=== PATIENT | female | born 1990 | race Caucasian/White ===

== ENCOUNTER 2017-03-04 21:18 | Emergency (ER) | payer OTHER ==
--- NOTE | ~2017-03-04 | CR21 ---
[facility] A Service of [facility] RADIOLOGY TEXT RESULTS PATIENT: ROSALBA ROSA V LOCATION: SED : 91 UNIT #: [id number] AGE: [address]: Brett Ambrose MD SEX: F ORDER DR: [id number] [place] [id number] E MR#: [id number] Acc #: [id number] NAME: ROSALBA ROSA V. : 1990 SEX: F STUDY DATE/TIME: 03/04/2017 22:32 UNIT: SED ROOM: STUDY DESCRIPTION: CR Ankle Min 3 Views Rt Attending Physician: Brett Ambrose M.D. Ordering Physician: Brett Ambrose M.D. Primary Care Physician: Blaze Pappas M.D. MEDICAL IMAGING REPORT This report is preliminary unless electronic signature is present. EXAM Right ankle series HISTORY Pain, lateral ankle pain shooting up to knee, onset 2000 hours today. Surgery last year with hardware placed. FINDINGS AP, lateral and oblique radiographs of the right ankle are presented. No prior ankle imaging for comparison. Comparison with prior studies recommended, if available. There is no evidence of acute fracture. There are 2 obliquely oriented orthopedic fixation screws extending through the talus. There is faint visualization of what is either a old fracture plane or surgical osteotomy plane. This is seen along the anterior aspect of the talar dome on the lateral view. I do not believe that this is acute in time course. There is a 4 mm well-corticated calcification along the inferior aspect of the lateral malleolus favored to represent old chip or avulsion fracture, or accessory ossification center. Correlate with any acute injury to this region. There is no soft tissue defect, subcutaneous air or non-orthopedic radiodense foreign body. There is a small plantar calcaneal spur. Dictated by... Brett Peralta M.D. THIS IS AN ELECTRONICALLY VERIFIED REPORT Brett Peralta M.D. at 03/05/2017 10:59 PM VIELKA/valentin TD: 03/05/2017 02:26 JOB #: [id number] [facility] A Service of [facility] RADIOLOGY TEXT RESULTS PATIENT: ROSALBA ROSA V LOCATION: SED : 91 UNIT #: [id number] AGE: [address]: Brett Ambrose MD SEX: F ORDER DR: MEDICAL IMAGING REPORT Page 1 of 1
[~2017-03-04 21:18] MED LIST: AMOXICILLIN500 M1 PO; BACTRIM DS TABL1 TA1 PO; CEFTIN PO; CIPRO PO; CLEOCIN HCL300 M1 PO; COUMADIN5 MG PO; DECADRON PO; DICLOFENAC PO; DOXYCYCLINE HY100 M1 PO; DOXYCYCLINE150 MG PO; ELIMITE60 GM TOP; FLAGYL PO; FLAGYL250 M1 PO; IBUPROFEN PO; IRON; LOVENOX SUBQ; MACROBID100 MG PO; NAPROXEN PO; NEXPLANON68 MG SQ; NO MEDICATIONS; PHENERGAN DM1 ML PO; PHENERGAN25 M1 PO; PRENATAL MULITV1 TAB PO; PRENATAL MULTIV1 TA1 PO; PRENATAL VITAMI1 TA7 PO; PRENATAL1 TA1 PO; PYRIDIUM100 MG PO; STOOL SOFTNER; TYLENOL #3 PO; VIBRAMYCIN100 M1 PO; VOLTAREN50 MG PO
[2017-03-04] MEDS ORDERED: DIAZEPAM (21:30)
== END 2017-03-04 23:23 | disposition home or self-care (01) ==
LOC: SED 21:18
DX: S93.401A Sprain of unspecified ligament of right ankle, initial encounter (principal); F17.200 Nicotine dependence, unspecified, uncomplicated; W18.40XA Slipping, tripping and stumbling without falling, unspecified, initial encounter; Y92.009 Unspecified place in unspecified non-institutional (private) residence as the place of occurrence of the external cause
CPT/HCPCS: 29540; 73610; 99283

== ENCOUNTER 2017-04-17 23:45 | Emergency (ER) | payer OTHER ==
--- NOTE | ~2017-04-17 | EKG ---
PATIENT: ROSALBA ROSA UNIT #: [id number] Ventricular Rate: 93 BPM Atrial Rate: 93 BPM P-R Interval: 150 ms QRS Duration: 90 ms Q-T Interval: 374 ms QTC Calculation(Bezet): 465 ms P [place]: 25 degrees Calculated R [place]: 25 degrees Calculated T [place]: 29 degrees Diagnosis Line: Normal sinus rhythm Diagnosis Line: Cannot rule out Anterior infarct , age Diagnosis Line: undetermined Diagnosis Line: Abnormal ECG Diagnosis Line: When compared with ECG of 07-OCT-2016 04:59, Diagnosis Line: No significant change was found Diagnosis Line: Confirmed by HANANE SHIN MD ([id number]) on Diagnosis Line: 04/19/2017 8:03:34 AM INTERPRETING MD: KIP BINGHAM
--- NOTE | ~2017-04-17 | CT16 ---
[facility] A Service [facility] RADIOLOGY TEXT RESULTS PATIENT: ROSALBA ROSA V LOCATION: SED : 91 UNIT #: [id number] AGE: [address]: Brett Ambrose MD SEX: F ORDER DR: [id number] [place] [id number] E MR#: [id number] Acc #: [id number] NAME: ROSALBA ROSA V. : 1990 SEX: F STUDY DATE/TIME: 04/18/2017 1:53 UNIT: SED ROOM: STUDY DESCRIPTION: CT Angio Chest for PE Attending Physician: Brett Ambrose M.D. Ordering Physician: Brooklynn Aguiar A.P.R.N. Primary Care Physician: Blaze Pappas M.D. MEDICAL IMAGING REPORT This report is preliminary unless electronic signature is present. EXAM CTA chest INDICATION Shortness of air and chest pain. Dizziness for 1 day. History of pulmonary embolus. TECHNIQUE CT angiography of the chest utilizing 100 mL Isovue-370 IV contrast. Coronal 3-D MIP reconstructions and standard sagittal reconstructions were obtained. This CT exam was performed with one or more of the following radiation dose reduction techniques: automatic exposure control, adjustment of mA and/or kV according to patient size, and iterative reconstruction. COMPARISON CTA chest 09/30/2016 FINDINGS No pulmonary embolus is identified. The filling defects previously described in the right lower lobe have resolved. No thoracic aortic aneurysm or dissection. No pericardial or pleural effusion. There is minimal residual thymus in the anterior mediastinum. No new pulmonary opacities. Lungs are clear. Central airways are patent. No acute osseous abnormalities. IMPRESSION 1. Negative for pulmonary embolus. Resolved right lower lobe pulmonary [facility] A Service [facility] RADIOLOGY TEXT RESULTS PATIENT: ROSALBA ROSA V LOCATION: SED : 91 UNIT #: [id number] AGE: [address]: Brett Ambrose MD SEX: F ORDER DR: emboli from the prior study of 09/30/2016. 2. No acute findings in the chest. Dictated by... Scott Ghosh M.D. THIS IS AN ELECTRONICALLY VERIFIED REPORT Scott Ghosh M.D. at 04/18/2017 3:35 AM KO/ishmael TD: 04/18/2017 03:29 JOB #: [id number] MEDICAL IMAGING REPORT Page 1 of 1
[~2017-04-17 23:45] MED LIST changes: +DIAZEPAM
[2017-04-18 01:05] LABS: BASOPHIL% 0.2 % (0-2.5); EOSINOPHIL# 0.1 X10e3 (0-0.7); EOSINOPHIL% 0.6 % (0.0-7.0); HEMOGLOBIN 14.8 gm/dL (12.0-16.0); LYMPHOCYTE% 14.7 % (17.0-45.0); MEAN CELL VOLUME 86.7 FL (83-96); MEAN CORPUSCULAR HEMOGLOBIN 28.6 PG (28-34); MEAN PLATELET VOLUME 7.6 FL (6.5-11.5); MONOCYTE# 0.9 X10e3 (0-1.0); MONOCYTE% 6.5 % (3.0-12.0); NEUTROPHIL# 10.6 X10e3 (1.5-7.1); PLATELET COUNT 248 X10e3 (140-420); RED BLOOD COUNT 5.19 X10e (3.90-5.30); RED CELL DISTRIBUTION WIDTH 12.9 % (11.0-15.5); WHITE BLOOD COUNT 13.6 X10e3 (4.0-10.5)
[2017-04-18 01:08] LABS: DIFF IND NO
[2017-04-18 01:20] LABS: POC - CKMB <1.0 ng/mL (0.0-7.9); POC - TROPONIN <0.05 ng/mL (<=0.05)
[2017-04-18 01:38] LABS: ALBUMIN SERUM 3.6 g/dL (3.5-5.0); BILIRUBIN,TOTAL 0.5 mg/dL (0.2-2.0); BUN/CREATININE RATIO 12.5; CALCIUM SERUM 8.4 mg/dL (8.4-10.2); CREATININE SERUM 0.8 mg/dL (0.6-1.4); GLOM FILT RATE Estimated 102.6 mL/min (>60); POTASSIUM 3.9 mmol/L (3.5-5.1); PROTEIN TOTAL SERUM 6.9 g/dL (6.0-8.3)
== END 2017-04-18 02:46 | disposition home or self-care (01) ==
LOC: SED 23:45
PROVIDERS: Nurse Practitioner
DX: R07.89 Other chest pain (principal); Z86.711 Personal history of pulmonary embolism; F17.210 Nicotine dependence, cigarettes, uncomplicated; Z88.8 Allergy status to other drugs, medicaments and biological substances
CPT/HCPCS: 36415; 71275; 80053; 82550; 82553; 84484; 84703; 85025; 93005; 96360; 99285; Q9967